=== PATIENT | male | born 2000 | race Asian ===

== ENCOUNTER 2019-02-15 14:05 | Emergency (ER) | payer OTHER ==
[~2019-02-15] VITALS: Ht 175.3 cm; Wt 68.0 kg
[2019-02-15] MEDS ORDERED: FAMOTIDINE 20MG TABLET PO ONE (15:15)
[2019-02-15] MEDS ORDERED: DIPHENHYDRAMINE 50MG/ML VIAL IM ONE (15:15)
[2019-02-15] MEDS ORDERED: DEXAMETHASONE 4MG/ML 1ML VIAL IM ONE (15:15)
[2019-02-15 16:46] VITALS: BP 130/80
== END 2019-02-15 16:56 | disposition home or self-care (01) ==
LOC: ER 14:05
DX: T78.40XA Allergy, unspecified, initial encounter (principal); J45.909 Unspecified asthma, uncomplicated; Z88.6 Allergy status to analgesic agent; X58.XXXA Exposure to other specified factors, initial encounter
CPT/HCPCS: 99283